=== PATIENT | female | born 1955 | race Caucasian/White ===

== ENCOUNTER → 2016-06-16 | Outpatient (CLI) | payer OTHER ==
--- NOTE | 2016-06-16 09:15 | REPMRS ---
Patient History The patient states she had a clinical breast exam in 05/15. Patient is postmenopausal, has history of cancer in the right breast at age 48, and had previous chemotherapy at age 48. Family history of unknown cancer in paternal grandfather at age 60, breast cancer in mother at age 60, and breast cancer in maternal grandmother at age 64. Benign radio exam breast specimen of the right breast, July 03, 2014. Benign stereotatic loc for ea lesion of the right breast, July 03, 2014. Malignant lumpectomy of the right breast, 2004. Chemotherapy, 2004. Radiation therapy of the right breast, 2004. Took tamoxifen for 5 years. Digital Mammo Screening Bilat: June 16, 2016 - Exam #: [id number] Bilateral CC and MLO view(s) were taken. Technologist: Winsome Abdul, Technologist Prior study comparison: June 10, 2015, bilateral digital mammo screening bilat performed at [facility]. May 29, 2014, right breast digital mammo diagnostic unilateral performed at [facility]. May 08, 2014, bilateral bilat screen digital mammo, performed at [facility] ([facility]). FINDINGS: There are scattered fibroglandular densities. There has been no change in the appearance of the mammogram from the prior studies. There is a needle biopsy marker clip in the right breast. There are stable post treatment changes in the right breast.There is a mild amount of scattered fibroglandular density which is fairly symmetric. There is no interval development of dominant mass, architectural distortion, or clustered microcalcification suggestive of malignancy. ASSESSMENT: BI-RADS/ACR category 1 mammogram. Negative. Recommendation Routine screening mammogram in 1 year (for women over age 40). This mammogram was interpreted with the aid of an FDA-approved computer-aided dectection system. Electronically Signed By: Alexandru Crabtree MD 06/16/16 0915
== END ==
LOC: M RAD 08:19
PROVIDERS: ATTEND Internal Medicine Medical Oncology
DX: Z12.31 Encounter for screening mammogram for malignant neoplasm of breast (principal); Z78.0 Asymptomatic menopausal state

== ENCOUNTER → 2017-07-09 | Outpatient (CLI) | payer OTHER | LOC: M RAD 10:45 | DX: Z12.31 Encounter for screening mammogram for malignant neoplasm of breast (principal); Z85.3 Personal history of malignant neoplasm of breast; Z92.21 Personal history of antineoplastic chemotherapy; Z80.3 Family history of malignant neoplasm of breast; Z92.3 Personal history of irradiation; Z79.810 Long term (current) use of selective estrogen receptor modulators (SERMs) ==

== ENCOUNTER 2017-12-29 06:44 | Day surgery (SDC) | payer OTHER ==
[2017-12-29] MEDS ORDERED: NS 1,000 ML IV (07:00)
[2017-12-29] MEDS ORDERED: PROPOFOL 200 MG/20 ML VIAL As Ordered ×2 (07:18→07:40)
[2017-12-29] MEDS ORDERED: LIDOCAINE 2% INJ 100 MG/5 ML SDV (FOR ANES.) As Ordered (07:18)
== END 2017-12-29 08:29 | disposition home or self-care (01) ==
LOC: M OPP 06:44
DX: Z12.11 Encounter for screening for malignant neoplasm of colon (principal); D12.2 Benign neoplasm of ascending colon; K64.0 First degree hemorrhoids; E11.9 Type 2 diabetes mellitus without complications; E78.5 Hyperlipidemia, unspecified; Z85.3 Personal history of malignant neoplasm of breast; Z92.21 Personal history of antineoplastic chemotherapy; Z92.3 Personal history of irradiation; K21.9 Gastro-esophageal reflux disease without esophagitis; R12 Heartburn; Z79.84 Long term (current) use of oral hypoglycemic drugs; Z79.899 Other long term (current) drug therapy; Z80.3 Family history of malignant neoplasm of breast; Z80.8 Family history of malignant neoplasm of other organs or systems; Z80.1 Family history of malignant neoplasm of trachea, bronchus and lung
CPT/HCPCS: 45380

== ENCOUNTER 2020-08-30 08:01 | Emergency (ER) | payer MEDICARE ==
[~2020-08-30] VITALS: Ht 157.5 cm; Wt 78.0 kg
[2020-08-30 08:01] VITALS: BP 141/70
[~2020-08-30 08:01] MED LIST: GLIM4TAB5 PO; GLYX1TAB PO; TUMS500C PO; TURM500C PO; VITA2000 PO
[2020-08-30] MEDS ORDERED: EZET10TA21 PO (08:10)
[2020-08-30] MEDS ORDERED: JARD1TAB3 (08:10)
[2020-08-30] MEDS ORDERED: METF750T36 PO (08:10)
[2020-08-30] MEDS ORDERED: ACET-683 PO (08:24)
--- NOTE | 2020-08-30 08:47 | REP ---
INDICATION: trauma/fall COMPARISON: None. TECHNIQUE: There are four views. FINDINGS: I suspect soft tissue edema laterally. This should be confirmed clinically. Mineralization is normal. Joint spaces are unremarkable. There is a collection of small linear calcifications at the tip of the medial malleolus. These could represent ligamentous calcifications or avulsion is. Correlate with clinical point tenderness. There is a calcification at the tip of the fibula, accessory ossicle versus avulsion. Correlate with clinical point tenderness. There are small calcifications at the posterior joint line, ligamentous calcifications versus avulsions. There are linear calcifications in the plantar fascia, likely sequela of plantar fasciitis. IMPRESSION: Avulsions versus accessory ossicles medially, laterally and posteriorly as described. Probable soft tissue edema laterally. Confirm clinically. Calcifications in the plantar fascia, likely sequela of prior plantar fasciitis. <Electronically signed by Tc Smith > 08/30/20 [id number]
--- NOTE | 2020-08-30 09:10 | REP ---
INDICATION: ecchymosis, swelling along 5th metatarsal COMPARISON: None. TECHNIQUE: AP, lateral, bilateral oblique views right foot. FINDINGS: Old healed fracture of the 5th toe. No acute fracture or dislocation appreciated. Surrounding soft tissues are grossly unremarkable. IMPRESSION: Findings suggest old fracture involving 5th toe proximal phalanx. No obvious acute osseous abnormality. <Electronically signed by Esteban Vallejo > 08/30/20 0907
== END 2020-08-30 09:30 | disposition home or self-care (01) ==
LOC: M ED 08:01
DX: S92.154A Nondisplaced avulsion fracture (chip fracture) of right talus, initial encounter for closed fracture (principal); W19.XXXA Unspecified fall, initial encounter; Y92.008 Other place in unspecified non-institutional (private) residence as the place of occurrence of the external cause; Y93.9 Activity, unspecified; Y99.9 Unspecified external cause status; E11.9 Type 2 diabetes mellitus without complications; Z79.84 Long term (current) use of oral hypoglycemic drugs; Z88.8 Allergy status to other drugs, medicaments and biological substances

== ENCOUNTER 2023-12-27 08:11 | Day surgery (SDC) | payer MEDICARE ==
[~2023-12-27] VITALS: Ht 157.5 cm; Wt 60.8 kg
[~2023-12-27 08:11] MED LIST changes: +ACET-683 PO; +CURC500C2 PO; +EZET10TA21 PO; +JARD1TAB3 PO; +METF750T36 PO; +MULTTAB61 PO; +OMEGCAP4 PO; +SEMA0.257; +prevagen
[2023-12-27] MEDS ORDERED: propofoL 200 MG/20 ML VIAL As Ordered ONE (08:21)
[2023-12-27] MEDS: NS 1,000 ML IV ONE (08:33)
[2023-12-27 09:32] VITALS: TEMP 97.4
[2023-12-27 09:51] VITALS: BP 115/66; O2SAT 100
== END 2023-12-27 09:57 | disposition home or self-care (01) ==
LOC: M OPP 08:11
PROVIDERS: ATTEND Internal Medicine Gastroenterology
DX: Z12.11 Encounter for screening for malignant neoplasm of colon (principal); Z86.010 Personal history of colon polyps; D12.2 Benign neoplasm of ascending colon; K64.0 First degree hemorrhoids; E11.9 Type 2 diabetes mellitus without complications; E03.9 Hypothyroidism, unspecified; Z79.84 Long term (current) use of oral hypoglycemic drugs; Z79.899 Other long term (current) drug therapy; Z88.6 Allergy status to analgesic agent